=== PATIENT | female | born 1930 | race Hispanic/Latino ===

== ENCOUNTER 2019-05-16 13:38 | Inpatient (IN) ==
--- NOTE | 2019-05-16 15:12 | EKG Report ---
Test Performed on : 05/16/2019 2:59:53 PM Test Reason : Hypercalcemia Blood Pressure : / mmHG Vent. Rate : 059 BPM Atrial Rate : 059 BPM P-R Int : 166 ms QRS Dur : 150 ms QT Int : 424 ms P-R-T Axes : 018 008 010 degrees QTc Int : 419 ms Sinus bradycardia. with sinus arrhythmia. Right bundle branch block Abnormal ECG When compared with ECG of 07-JUL-2014 14:25, Vent. rate has decreased BY 32 BPM Criteria for Anterior infarct are no longer present T wave inversion now evident in Inferior leads QT has shortened Confirmed by Rocío RODRIGUEZ, Romario ([id number]) on 05/19/2019 8:13:43 AM
[2019-05-16 15:34] LABS: BASO# 0.04 X1000 (0.0-0.2); BASO% 0.6 % (0.0-0.8); EOS# 0.49 X1000 (0.0-0.7); EOS% 7.5 % (0.0-10.0); HEMATOCRIT 36.4 % (37.0-47.0); HEMOGLOBIN 12.1 g/dL (12.0-16.0); LYMPH# 2.24 X1000 (1.2-3.4); LYMPH% 34.3 % (20.5-51.1); MCH 30.8 PG (27-31); MCHC 33.2 g/dL (33-37); MCV 92.6 FL (81-99); MONO# 0.51 X1000 (0.11-0.59); MONO% 7.8 % (1.7-9.3); MPV 10.5 FL (7.4-10.4); NEUT# 3.25 X1000 (1.4-6.5); NEUT% 49.8 % (42.2-75.2); PLT 298 X1000 (130-400); RBC 3.93 XMIL (4.2-5.4); WBC 6.53 X1000 (4.8-10.8)
--- NOTE | 2019-05-16 15:34 | Diag Imaging Result Doc PS360 ---
EXAM: CHEST-2 VIEWS 05/16/2019 HISTORY: Hypercalcemia TECHNIQUE: PA and lateral chest COMMENT: The inspiration is less optimal than on 03/05/2017. Otherwise are has been no significant change. Note is made of a densely calcified gallstone in the right upper quadrant. This was also demonstrated on CT on 11/13/2018. There appears to be some interstitial fibrosis in the lung bases particularly the left lower lobe. IMPRESSION: Stable chest. Electronically signed by Kwasi Choe 05/16/2019 3:32 PM
[2019-05-16] MEDS: NS 1,000 ML IV SCH (15:40)
[2019-05-16 15:41] LABS: INR 1.01; PROTIME 13.4 Seconds (11.0-16.0); PTT 25.1 Seconds (22.3-41.8)
[2019-05-16] MEDS: PROTONIX IV SCH (15:48)
[2019-05-16] MEDS: SODIUM CHLORIDE 0.9% INJ SCH (15:49)
[2019-05-16 16:01] LABS: ALB/GLOB RATIO 1.4; ALBUMIN 3.9 g/dL (3.5-5.0); CREATININE 3.3 mg/dL (0.5-0.9); POTASSIUM 4.2 mmol/L (3.5-5.1); TOTAL BILIRUBIN 0.26 mg/dL (0.20-1.00); TOTAL PROTEIN 6.7 g/dL (6.3-8.3)
[2019-05-16 16:02] LABS: CALCIUM 14.4 mg/dL (8.8-10.2)
[2019-05-16] MEDS: COZAAR PO SCH (18:39)
[2019-05-16] MEDS: PRAVACHOL PO SCH (20:59)
[2019-05-17] MEDS: NS 1,000 ML IV SCH ×6 (00:02→21:32)
[2019-05-17 00:24] LABS: URINE SOURCE CLEAN CATCH
[2019-05-17 00:27] LABS: BILIRUBIN URINE NEGATIVE (NEGATIVE); BLOOD URINE NEGATIVE (NEGATIVE); COLOR STRAW; GLUCOSE URINE NEGATIVE (NEGATIVE); KETONE URINE NEGATIVE (NEGATIVE); LEUKOCYTES URINE NEGATIVE (NEGATIVE); NITRITE URINE NEGATIVE (NEGATIVE); PH URINE 6.5; PROTEIN URINE NEGATIVE (NEGATIVE); SP GRAVITY URINE 1.009; TURBIDITY URINE CLEAR (CLEAR); UR EPITHELIAL CELLS <10 /HPF (<10); URINE BACTERIA NEGATIVE /HPF; URINE RBC <10 /HPF (<10); URINE WBC <10 /HPF (<10); UROBILINOGEN URINE NORMAL (NORMAL)
--- NOTE | 2019-05-17 03:10 | HISTORY AND PHYSICAL ---
CHIEF COMPLAINT: Hypercalcemia. Ms. Dover is an 88-year-old, white female patient, came for evaluation yesterday when patient was complaining of dry mouth and dry eyes. Initially, I thought of sicca syndrome, did appropriate lab. I got the lab results back, her calcium was 16 and patient also have acute kidney injury. I called the patient and the patient was symptomatic with hypercalcemia, and decided to admit her for further care. The patient did have weakness, dry mouth; at times, constipation. Her oral intake was poor. I did the EKG, which revealed QT was shortened. The patient had CT scan done of her abdomen a few months ago, which revealed retroperitoneal adenopathy suspicious for lymphoma or other neoplastic disease. At that time, I did refer patient to oncologist, the patient did go to see oncologist but then she decided not to have any further workup or intervention. I also referred patient to csr for further workup, but then patient declined. The patient denied any chest pain or palpitation. At times, problems swallowing. The patient does have abdominal pain, which she was attributing to her ventral hernia. No bleeding per rectum. At times, constipation. No typical chest pain or palpitations. The patient does have occasional cough, no expectoration or hemoptysis. The patient does have arthritic pain in the knee, at times in the lower back. No heat or cold intolerance. No runny nose, stuffy nose, sinus drainage. At times, polyuria, polydipsia. No focal numbness, tingling, weakness. The patient does have, at times, problems with numbness, tingling. At times, patient does feel depressed. No further history available at this time. ALLERGY: Iodinated contrast media. MEDICATION: Includes Pravachol, Hyzaar and aspirin. PAST MEDICAL HISTORY: Hypertension, hyperlipidemia, osteoarthritis, possible lymphoma. PAST SURGICAL HISTORY: Patient had left inguinal hernia repair done. REVIEW OF SYSTEMS: As per HPI. PERSONAL HISTORY: Single. Nonsmoker. Denied alcohol or substance abuse. Fairly independent in activities of daily living. REVIEW OF SYSTEMS: As per HPI. PHYSICAL EXAMINATION: GENERAL: Elderly, white female patient in mild distress. VITAL SIGNS: Blood pressure 173/71, pulse 64, respiration rate 14, temperature 97.4 degrees. SKIN: Senile turgor. HEENT: Head atraumatic, normocephalic. [place] conjunctivae. Anicteric sclerae. Extraocular muscle movement normal. Fundus cannot be penetrated. Good oral hygiene. No tonsillopharyngeal congestion or exudate. Ears and nose benign. NECK: Supple. No JVD, thyromegaly or lymphadenopathy. CHEST: Bibasilar crepitation. No rales. CARDIOVASCULAR: S1 and S2 heard. 2/6 systolic murmur at the apex. ABDOMEN: Soft, globular. Bowel sounds present. Patient does have ventral hernia. EXTREMITIES: No cyanosis, clubbing. No acute DVT. Crepitation both the knee joints. MANAGER SUMMER: Alert, awake. Able to move all 4 limbs. BREAST: Patient have both the breasts tender. Exam was limited. I did not feel apparent lump or nipple discharge. LABORATORY AND DIAGNOSTIC DATA: Hemoglobin 12.1, hematocrit 36.4, WBC count 6.53, platelet count 298,000. PT/INR 1.01, PTT 25.1. Sodium 135, potassium 4.2, BUN 54, creatinine 3.3, calcium 4.4. Chest x-ray revealed calcified gallstone, interstitial fibrosis in the lung base. CONSIDERATION: 1. Hypercalcemia. 2. Acute kidney injury and dehydration. 3. Hypertension. 4. Ventral hernia. 5. Osteoarthritis. 6. The patient has a history suggestive of enlarged lymph node in retroperitoneal area suggestive of lymphoma. Other occult malignancy cannot be ruled out. PLAN: Admit the patient. IV hydration and then we will consider giving her Lasix. Oncology consult for management of hypercalcemia. The patient was seen by Dr. Lobato in the past, I will refer her to Dr. Lobato. Overall plan discussed with the patient and son. They are in agreement. Her EKG reviewed. cc: Mitchel Qureshi MD
[2019-05-17] MEDS: LOVENOX SUBQ SCH (06:03)
[2019-05-17 06:57] LABS: BASO# 0.03 X1000 (0.0-0.2); BASO% 0.5 % (0.0-0.8); EOS# 0.62 X1000 (0.0-0.7); EOS% 10.7 % (0.0-10.0); HEMATOCRIT 32.6 % (37.0-47.0); HEMOGLOBIN 10.6 g/dL (12.0-16.0); LYMPH# 1.49 X1000 (1.2-3.4); LYMPH% 25.8 % (20.5-51.1); MCH 30.7 PG (27-31); MCHC 32.5 g/dL (33-37); MCV 94.5 FL (81-99); MONO# 0.57 X1000 (0.11-0.59); MONO% 9.9 % (1.7-9.3); MPV 10.9 FL (7.4-10.4); NEUT# 3.06 X1000 (1.4-6.5); NEUT% 53.1 % (42.2-75.2); PLT 252 X1000 (130-400); RBC 3.45 XMIL (4.2-5.4); RDW 12.1 % (11.5-14.5); WBC 5.77 X1000 (4.8-10.8)
[2019-05-17 07:40] LABS: ALB/GLOB RATIO 1.5; ALBUMIN 3.2 g/dL (3.5-5.0); POTASSIUM 4.1 mmol/L (3.5-5.1); TOTAL BILIRUBIN 0.24 mg/dL (0.20-1.00); TOTAL PROTEIN 5.4 g/dL (6.3-8.3)
[2019-05-17] MEDS: COZAAR PO SCH (08:07)
[2019-05-17] MEDS: ASPIRIN PO SCH (08:07)
--- NOTE | 2019-05-17 12:39 | Diag Imaging Result Doc PS360 ---
EXAM: US RENAL 2 (RETROPER) COMPLETE 05/17/2019 HISTORY: kelsey/arf TECHNIQUE: Renal ultrasound COMMENT: The urinary bladder is not particularly distended. There is no evidence of hydronephrosis. The left kidney is 9 x 4.6 x 4.2 cm the right kidney is 9.3 x 4.3 x 4 cm. There are no apparent masses or stones. IMPRESSION: No evidence of obstructive uropathy. Electronically signed by Kwasi Choe 05/17/2019 12:37 PM
[2019-05-17] MEDS: PROTONIX IV SCH (14:05)
[2019-05-17] MEDS: SODIUM CHLORIDE 0.9% INJ SCH (14:06)
[2019-05-17] MEDS ORDERED: LASIX IV ONE (15:00)
--- NOTE | 2019-05-17 18:03 | PROGRESS NOTE ---
DATE: 05/17/2019 SUBJECTIVE: Ms. Dover is feeling better. Her dry mouth and dry eyes are improving. Tolerating IV hydration well. No chest pain or palpitations. Denied any nausea or vomiting. No dysuria or hematuria. The patient does have vague abdominal pain at her hernia site. OBJECTIVE: Vital signs: Noted. Blood pressure 171/64, pulse 68, respiration 18, temperature 97.5 degrees. skin: Senile turgor. Neck: Supple. No JVD. Lungs: Bibasilar crepitations. heart: A 2/6 systolic murmur at the apex. Abdomen: Soft, globular. Bowel sounds present. Central nervous system: Alert, awake, able to move all 4 limbs. Crepitation of both the knee joints. The patient does have ventral hernia. LABORATORY DATA: Done today, hemoglobin 10.6, hematocrit 32.6, WBC 5.77, platelet count 252,000. Electrolytes, calcium was 12, BUN 48, creatinine 3, blood sugar was 90. I did check her intact PTH which was 18. CEA level was 3. ASSESSMENT: Patient admitted with: 1. 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 2. Acute renal failure. Possibility of underlying chronic kidney disease cannot be ruled out. 3. Hypertension. 4. Hyperlipidemia. 5. Osteoarthritis. 6. Ventral hernia. PLAN: I am going to get a renal ultrasound done. Waiting for oncologist evaluation. I am going to give her some IV Lasix today. Continue the rest of the treatment. Close observation. Input/output chart. Overall plan discussed with the patient and family, and they are in agreement. cc: Mitchel Qureshi MD
[2019-05-17] MEDS: PRAVACHOL PO SCH (20:44)
[2019-05-18] MEDS: NS 1,000 ML IV SCH ×6 (02:05→22:13)
[2019-05-18] MEDS: LOVENOX SUBQ SCH (05:13)
[2019-05-18 06:31] LABS: HEMATOCRIT 32.5 % (37.0-47.0); HEMOGLOBIN 10.5 g/dL (12.0-16.0); MCH 30.9 PG (27-31); MCHC 32.3 g/dL (33-37); MCV 95.6 FL (81-99); RBC 3.4 XMIL (4.2-5.4); RDW 12.4 % (11.5-14.5); WBC 6.62 X1000 (4.8-10.8)
[2019-05-18 07:08] LABS: ALB/GLOB RATIO 1.4; ALBUMIN 3.3 g/dL (3.5-5.0); CALCIUM 11.6 mg/dL (8.8-10.2); CREATININE 2.8 mg/dL (0.5-0.9); POTASSIUM 3.9 mmol/L (3.5-5.1); TOTAL BILIRUBIN 0.18 mg/dL (0.20-1.00); TOTAL PROTEIN 5.7 g/dL (6.3-8.3)
[2019-05-18] MEDS: COZAAR PO SCH (08:46)
[2019-05-18] MEDS: ASPIRIN PO SCH (08:46)
--- NOTE | 2019-05-18 12:53 | PROGRESS NOTE ---
DATE: 05/18/2019 SUBJECTIVE: The patient says she is feeling better and better. OBJECTIVE: Blood pressure is 145/56, respirations 18, pulse 66, temperature 97.7 degrees Fahrenheit. HEENT: She is normocephalic. EOMs intact. Throat clear. Lungs: Clear to auscultation and percussion without rhonchi, rales, or wheezes. Heart: Regular rate and rhythm without murmurs, gallops, or friction rubs. Abdomen: Soft. Active bowel sounds. No organomegaly or tenderness. White count is 6620, hemoglobin 10.5, hematocrit 32.5. Potassium 3.9, sodium 141, CO2 of 23, anion gap 20, BUN 43, creatinine 2.8 which is down from 3.3, calcium is down from 14.4 to 11.6. Apparently, in the office with Dr. Qureshi, the calcium was 16. She was given Lasix and this has brought this down. Apparently, in November of this year, she had a CT scan of the abdomen that showed some lymphadenopathy suspicious for lymphoma. She went to oncology and when they wanted to do a bone marrow aspiration, she backed out and did not have anything else done. I have explained to her that if she does have a lymphoma, it might be treated easily and that if she gets too much hypercalcemia, then she will have problems. Anyway, she is willing see oncology again. ASSESSMENT: 1. Hypercalcemia. 2. Questionable lymphoma or other malignancy. 3. Hypertension, on medication. PLAN: Continue treatment and workup. cc: MD Mitchel Driscoll Jr, MD
[2019-05-18] MEDS: PROTONIX IV SCH (14:38)
[2019-05-18] MEDS: SODIUM CHLORIDE 0.9% INJ SCH (14:38)
[2019-05-18] MEDS: PRAVACHOL PO SCH (20:57)
[2019-05-19] MEDS: NS 1,000 ML IV SCH ×4 (03:31→18:19)
[2019-05-19] MEDS: LOVENOX SUBQ SCH (05:04)
[2019-05-19] MEDS ORDERED: LASIX IV ONE (07:28)
[2019-05-19 08:26] LABS: BASO# 0.04 X1000 (0.0-0.2); BASO% 0.7 % (0.0-0.8); EOS# 0.55 X1000 (0.0-0.7); EOS% 9.1 % (0.0-10.0); HEMATOCRIT 34.4 % (37.0-47.0); HEMOGLOBIN 11.3 g/dL (12.0-16.0); LYMPH# 1.75 X1000 (1.2-3.4); LYMPH% 28.9 % (20.5-51.1); MCH 30.8 PG (27-31); MCHC 32.8 g/dL (33-37); MCV 93.7 FL (81-99); MONO% 6.6 % (1.7-9.3); MPV 10.7 FL (7.4-10.4); NEUT# 3.31 X1000 (1.4-6.5); NEUT% 54.7 % (42.2-75.2); PLT 249 X1000 (130-400); RBC 3.67 XMIL (4.2-5.4); RDW 12.4 % (11.5-14.5); WBC 6.05 X1000 (4.8-10.8)
[2019-05-19 08:47] LABS: ALB/GLOB RATIO 1.5; ALBUMIN 3.9 g/dL (3.5-5.0); CREATININE 2.7 mg/dL (0.5-0.9); POTASSIUM 3.6 mmol/L (3.5-5.1); TOTAL BILIRUBIN 0.27 mg/dL (0.20-1.00); TOTAL PROTEIN 6.5 g/dL (6.3-8.3)
--- NOTE | 2019-05-19 08:58 | Diag Imaging Result Doc PS360 ---
CT THORAX W/O CONTRAST - 05/19/2019 INDICATION: hypercalcemia COMPARISON: None FINDINGS: There are shotty mediastinal lymph nodes. No focal adenopathy. There is borderline cardiomegaly. No pericardial effusion. There is advanced pulmonary fibrosis with peripheral honeycombing. No significant infiltrates or nodules. There are moderate degenerative changes of the spine. No acute or suspicious bony lesion. IMPRESSION: 1. Advanced pulmonary fibrosis. 2. Borderline cardiomegaly. This exam was performed using automated exposure control, adjustment of mA or kV according to patient size, and/or use of iterative reconstruction technique Electronically signed by Preet Nix 05/19/2019 8:56 AM
--- NOTE | 2019-05-19 09:03 | Diag Imaging Result Doc PS360 ---
CT ABDOMEN/PELVIS W/O CONTRAST - 05/19/2019 INDICATION: hypercalcemia COMPARISON: 06/23/2014 FINDINGS: There are several benign cysts in the liver that are grossly stable from prior. These are mainly in the liver dome. These measure up to 3.8 cm. There is a right adrenal retroperitoneal mass. This is well-defined, polypoid, and of soft tissue density. This measures 4.5 x 6.5 x 6.5 cm in AP, lateral, and craniocaudal measurements. There are several enlarged lymph nodes in the upper retroperitoneum on both sides of the aorta. These extend to the level of the kidney. No adenopathy in the lower abdomen or pelvis. There is a large stable calcified gallstone in the gallbladder. No gallbladder inflammation. There is a rather large ventral hernia in the epigastrium containing a good portion of the transverse colon. There is severe diverticulosis throughout the colon. There is moderate constipation. No bowel obstruction or inflammation. Uterus is absent. Urinary bladder and rectum are normal. There are moderate degenerative changes of the spine. No acute or suspicious bony lesion. IMPRESSION: 1. Right adrenal retroperitoneal mass. Mild adenopathy in the upper retroperitoneum. This is indeterminate. Recommend a CT abdomen pelvis with intravenous contrast. 2. Large gallstone in the gallbladder. No gallbladder inflammation. 3. Constipation. Diverticulosis of the colon. 4. Ventral hernia. No inguinal hernia. This exam was performed using automated exposure control, adjustment of mA or kV according to patient size, and/or use of iterative reconstruction technique Electronically signed by Preet Nix 05/19/2019 9:01 AM
[2019-05-19] MEDS: ASPIRIN PO SCH (09:19)
[2019-05-19] MEDS: COZAAR PO SCH (09:19)
[2019-05-19] MEDS: PROTONIX IV SCH (15:11)
[2019-05-19] MEDS: SODIUM CHLORIDE 0.9% INJ SCH (15:11)
--- NOTE | 2019-05-19 18:59 | PROGRESS NOTE ---
DATE: 05/19/2019 SUBJECTIVE: Ms. Dover is doing better. Tolerating fluid well. No high-grade fever or chills. Urination is better. The patient did have a bowel movement. She denied any nausea or vomiting. No diarrhea, blood, or mucus in the stool. Mild pain in her epigastric in ventral hernia. We were still waiting for oncologist evaluation when I saw her in the morning. OBJECTIVE: Vital Signs: Noted. Neck: Supple. No JVD. Lungs: Bibasilar crepitations. Heart: S1 and S2 heard. 2/6 systolic murmur at the apex. Abdomen: Soft, globular. Ventral hernia. Extremities: No cyanosis, clubbing. Significant arthritis both knees. Central Nervous System: Alert, awake, answering questions fairly well. LABORATORY DATA: Hemoglobin 11.3, hematocrit 34.4, WBC count 6.05, platelet count 249,000. BUN 32, creatinine 2.7. Calcium was 11. CONSIDERATION: 1. Hypercalcemia improved 2. Chronic kidney disease. 3. Mild hypokalemia. 4. 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 5. Her other problem includes hypertension. PLAN: We will continue current treatment. Waiting for oncologist evaluation. Patient does have ventral hernia. The patient does not seem to be interested in invasive treatment. After reviewing oncologist recommendation will make further recommendations. cc: Mitchel Qureshi MD
[2019-05-19] MEDS: PRAVACHOL PO SCH (20:48)
[2019-05-20] MEDS: NS 1,000 ML IV SCH ×3 (03:46→18:01)
[2019-05-20] MEDS: LOVENOX SUBQ SCH (07:29)
[2019-05-20] MEDS: ASPIRIN PO SCH (08:58)
[2019-05-20] MEDS: COZAAR PO SCH (08:58)
--- NOTE | 2019-05-20 10:39 | PROGRESS NOTE ---
DATE: 05/20/2019 SUBJECTIVELY: Ms. Cinthia Dover is doing better. She denied any fever or chills. No unusual cough or expectoration. Denied any shortness of breath. O2 saturation on room air is satisfactory. Oncologist evaluated the patient yesterday. They recommended a bone scan and further workup which patient decline. I did talk to patient again about the importance of workup to treat her hypercalcemia. The patient understood the importance, but she does not want any intervention. OBJECTIVE: Vital signs: Her vital signs noted. Neck: Is supple. No JVD. Lungs: Bibasilar crepitations. Heart: S1 and S2 heard. Abdomen: Soft, globular. Bowel sounds present. Extremities: Crepitation in both the knee joints. INFORMATICS EDUCATOR: Alert, awake. Able to move all 4 limbs. LABORATORY DATA: Done yesterday noted. CONSIDERATION: 1. Hypercalcemia. 2. Chronic kidney disease. 3. Anemia of chronic disease. 4. Osteoarthritis. PLAN: We will continue current treatment. Patient is in right mind to make that decision about her treatment I am going to talk to the patient's son. The patient claims she lived a good life and she does not want to be bothered and if she is still decided no treatment, then I am planning to discharge patient home today. I explained her risk of hypercalcemia consequences. She understood and still does not want any intervention. cc: Mitchel Qureshi MD
--- NOTE | 2019-05-20 16:04 | HEMO/ONC CONSULTATION ---
DATE: 05/19/2019 REQUESTING PHYSICIAN: Dr. Qureshi. We appreciate this consultation. CHIEF COMPLAINT: Adrenal mass and lymphadenopathy. HISTORY OF PRESENT ILLNESS: Ms. Cinthia Dover is a pleasant 88-year-old female with a history of hypertension, hyperlipidemia, osteoarthritis, and possible lymphoma. The patient has been seen in clinic by Dr. Lobato once for suspected lymphoma. The patient wished not to follow up or be treated at that time. She presents to [facility] Emergency Department secondary to hypercalcemia. She was seen in clinic and evaluated and complained of dry mouth and dry eyes and was found to have a calcium of 16 with acute kidney injury. CT of the abdomen was done several months ago which revealed retroperitoneal adenopathy suspicious for lymphoma or other neoplastic disease, and the patient was referred to Dr. Lobato. She presented to clinic, and workup was suggested. However, the patient decided not to proceed with workup or treatment at that time. She now complains of abdominal pain. Of note, she does have a ventral hernia. She denies any B symptoms at this time. We are consulted as the patient has suspected lymphoma. PAST MEDICAL HISTORY: 1. Hypertension. 2. Hyperlipidemia. 3. Osteoarthritis. 4. Possible lymphoma. PAST SURGICAL HISTORY: Left inguinal hernia repair. SOCIAL HISTORY: The patient does not use tobacco, alcohol, or illicit drugs. She lives alone and is independent. FAMILY HISTORY: Negative for any hematologic or oncologic disease. REVIEW OF SYSTEMS: A 14-point review of systems was obtained and is negative except for mentioned in HPI. PHYSICAL EXAMINATION: General: Ms. Dover is a pleasant 88-year-old female lying supine in bed in no immediate distress. Vital Signs: Temperature 98 degrees, blood pressure 156/64, heart rate 60, respirations are 19, O2 saturation is 99% on room air. HEENT: Normocephalic, atraumatic. Mucous membranes are pink and moist. Sclerae anicteric. Extraocular movements intact. Neck: Supple. Lungs: Clear to auscultation bilaterally. Chest expansion is equal bilaterally. CV: S1, S2 is heard without murmur, rub or gallop. Abdomen: Nondistended. Extremities: No clubbing, cyanosis, or edema. Dermatologic: No rashes, bruises, or lesions. Neurologic: The patient is awake, alert, and oriented x3. Has no focal deficit. Gait is normal. LABORATORY DATA: Hemoglobin 11.3, hematocrit 34.4, white blood cell count is 6.05, platelets 249,000. Sodium 140, potassium 3.6, chloride 106, CO2 is 22, BUN 32, creatinine 2.7, and glucose is 87, calcium 11. IMAGING STUDIES: CT of the chest reveals advanced pulmonary fibrosis with borderline cardiomegaly. CT of the abdomen and pelvis reveals right adrenal retroperitoneal mass and mild adenopathy of the upper retroperitoneum with a large gallstone in the gallbladder. ASSESSMENT AND PLAN: 1. Right adrenal mass and lymphadenopathy. The patient currently refuses all workup. Bone scan was suggested with biopsy of one of the enlarged lymph nodes. The patient is currently refusing. We are available if needed. 2. Hypercalcemia status post IV fluids, now within normal limits. Calcium is currently 11. Would continue to monitor. 3. Acute kidney insufficiency and dehydration, improving slowly on IV fluids. 4. Hypertension, stable at this time. 5. We are available if the patient decides to proceed with workup and possible treatment. The above reflects the history, exam, assessment, and plan per Dr. Lobato. Dictated by LEA Spicer for Forest Lobato MD cc: LEA Spicer MD Bharat K. Vakharia, MD
[2019-05-20] MEDS: SODIUM CHLORIDE 0.9% INJ SCH (16:48)
[2019-05-20] MEDS: PROTONIX IV SCH (16:48)
[2019-05-20] MEDS: PRAVACHOL PO SCH (20:54)
[2019-05-21] MEDS: NS 1,000 ML IV SCH ×2 (02:43→08:36)
[2019-05-21] MEDS: LOVENOX SUBQ SCH (05:10)
[2019-05-21] MEDS: COZAAR PO SCH (08:35)
[2019-05-21] MEDS: ASPIRIN PO SCH (08:35)
--- NOTE | 2019-05-21 14:18 | Diag Imaging Result Doc PS360 ---
EXAM: BONE SCAN, TOTAL BODY 05/20/2019 HISTORY: hypercalcemia,metastatic cancer TECHNIQUE: 24.5 mCi of technetium 99m MDP COMMENT: There is some increased activity on both sides at the level of L5 which may be due to facet arthropathy. There is apparent facet arthropathy at this level demonstrated on the CT of 05/19/2019. There may also be some degree of spondylolysis as there is grade 1 anterolisthesis of L5 on S1. 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 No evidence of metastatic disease or other acute bony abnormality. Electronically signed by Kwasi Choe 05/21/2019 2:16 PM
[2019-05-21 15:15] VITALS: BP 170/54
--- NOTE | 2019-05-24 21:38 | DISCHARGE SUMMARY ---
ADMISSION DATE: 05/16/2019 DISCHARGE DATE: 05/21/2019 FINAL DISCHARGE DIAGNOSES: 1. Hypercalcemia, most likely of malignancy. 2. Acute on chronic kidney disease. 3. Osteoarthritis. 4. Possible hypothyroidism. 5. Anemia of chronic disease. 6. Retroperitoneal mass. 7. History of hypertension. Possible lymphoma. HISTORY OF PRESENT ILLNESS:: Ms. Dover is an 88-year-old white female patient admitted because of her calcium being 16 in my office. The patient also had evidence of kidney disease. She presented to my office because of dry mouth, dry eyes, polyuria and polydipsia. I did blood work. Her calcium was very high, and her BUN and creatinine were elevated. I talked to the patient. She agreed to go to the hospital. HOSPITAL COURSE: The patient was treated with IV hydration, monitoring her fluid status, and I also gave her Lasix. A Hematology/Oncology consult was requested. The patient was seen by Dr. Lobato in the past. At that time, he offered her workup, but patient declined. The patient had a CT scan of the abdomen and pelvis done, which did reveal a possible right adrenal retroperitoneal mass and mild adenopathy in the upper retroperitoneum, a large gallstone, constipation, diverticulosis of the colon, and a ventral hernia. We also did a CT scan of the chest, which revealed advanced pulmonary fibrosis and borderline cardiomegaly. The patient's calcium level gradually improved. Dr. Lobato evaluated the patient. Initially, the patient refused workup but then she agreed. She had a bone scan done which revealed bilateral facet disease and spondylosis at L5, no evidence of metastatic disease or acute other bony abnormality. I did a renal ultrasound because of her renal insufficiency. There was no evidence of obstructive uropathy. The patient was declining a renal biopsy or any treatment, but then she agreed. Will schedule her renal biopsy as an outpatient. The overall plan was discussed at length with the son and patient multiple times. They are in agreement. OVERALL DISCHARGE CONDITION: Satisfactory. The patient claims she is tired of being in the hospital because she was not able to sleep. DISCHARGE MEDICATIONS: As per the list. DISCHARGE INSTRUCTIONS: Fall precautions. Plenty of liquids orally. Follow up with me next week. We will consider blood work. In case of more distress, call us back or go to the emergency room. Follow up with oncologist. I did discuss discharge planning with the oncologist, and he is going to schedule her for a biopsy of the mass under CT guidance. Patient and family were made aware of this plan, and they are in agreement. LABORATORY DATA: Initial hemoglobin was 12.1 and hematocrit 36.4. Last hemoglobin 11.3 and hematocrit 34.4. Platelet count was 249,000, WBC count 6.05. PT and PTT were normal. Her calcium on admission was 14.4. At the time of discharge, it was 11. Urinalysis was benign. I did check an intact PTH level, and it was normal. cc: Mitchel Qureshi MD
== END 2019-05-21 16:38 | disposition home or self-care (01) | DRG 641 ==
LOC: 2N 13:52 → 3N 05-19 19:31
PROVIDERS: ADMIT Internal Medicine; ATTEND Internal Medicine